=== PATIENT | female | born 1945 | race Caucasian/White ===

== ENCOUNTER 2020-08-13 10:56 | Inpatient (IN) | payer MEDICARE, BC ==
[2020-08-13 11:19] LABS: #Eosinphils 0.1 thou/uL (0.0-0.7); #Lymphocytes 1.3 thou/uL (1.20-3.40); #Monocytes 0.3 thou/uL (0.11-0.59); #Neutrophils 4.5 thou/uL (1.40-6.50); %Basophils 0.8 % (0.0-1.0); %Eosinophils 1.1 % (0.0-10.0); %Lymphocytes 20.7 % (21.0-51.0); %Monocytes 4.9 % (0.0-10.0); %Neutrophils 72.6 % (42.0-75.0); Hemoglobin 13.7 g/dL (12.0-16.0); Mean Corpuscular HGB CONC 33.3 g/dL (32.0-36.0); Mean Corpuscular Hemoglobin 31.5 pg (27.0-31.0); Mean Corpuscular Volume 94.6 fL (78.0-98.0); Mean Platelet Volume 6.6 fL (7.4-10.4); Platelet Count 267 thou/uL (130-400); RBC Distribution Width 13.1 % (11.5-14.5); Red Blood Cell (RBC) Count 4.35 mill/uL (4.20-5.40); White Blood Cell (WBC) Count 6.1 thou/uL (4.8-10.8)
[2020-08-13 11:35] LABS: Acetaminophen Less than 6.0 mcg/mL (10.0-30.0); Alcohol Less than 10 mg/dL (Less than 10); Salicylate Less than 8.0 mg/dL (15.0-30.0)
[2020-08-13 11:50] LABS: ALT (SGPT) 22 U/L (8-55); AST (SGOT) 41 U/L (5-34); Albumin 4.6 g/dL (3.4-4.8); Alkaline Phosphatase 111 U/L (40-110); Anion Gap 15 mmol/L (10-20); BUN (Urea Nitrogen) 13 mg/dL (9.8-20.1); Bilirubin, Total 0.7 mg/dL (0.2-1.2); CK (CPK) 70 U/L (29-168); Calc. Creatinine Clearance 0 mL/min (70-130); Calcium 9.4 mg/dL (7.8-10.44); Carbon Dioxide 26 mmol/L (23-31); Chloride 101 mmol/L (98-107); Globulin 2.8 g/dL (2.4-3.5); Glucose 96 mg/dL (83-110); Potassium 4.3 mmol/L (3.5-5.1); Protein, Total 7.4 g/dL (5.8-8.1); Sodium 138 mmol/L (136-145)
[2020-08-13 12:08] LABS: PTT 34.4 sec (22.9-36.1)
[2020-08-13 13:16] LABS: Bilirubin Negative (Negative); Blood, Urine Negative (Negative); Clarity Clear (Clear); Glucose, Urine (Dipstick) Normal (Negative); Ketone, Urine Negative (Negative); Leukocyte Negative Leu/uL (Negative); Nitrite Negative (Negative); Protein, Urine (Dipstick) Negative (Neg-Trace); Specific Gravity, Urine 1.005 (1.002-1.036); Urobilinogen Normal mg/dL (Less than 2)
[2020-08-13 13:27] LABS: Medtox Reader # READER 1; Opiate Screen Detected (NotDetected)
[2020-08-13 13:28] LABS: Amphetamine Not Detected (NotDetected); Barbiturates Screen Not Detected (NotDetected); Benzodiazepine Screen Not Detected (NotDetected); Cocaine Metabolite Screen Not Detected (NotDetected); Medtox Control Line Valid? VALID (VALID); Methadone Not Detected (NotDetected); Methamphetamine Not Detected (NotDetected); Oxycodone Screen Not Detected (NotDetected); Phencyclidine (PCP) Not Detected (NotDetected); THC/Cannabinoid Screen Not Detected (NotDetected); Tricyclic Screen Not Detected (NotDetected)
--- NOTE | 2020-08-13 13:30 | CT ---
CT OF THE BRAIN WITHOUT CONTRAST: Date: 08/13/2020 INDICATION: Level II stroke in a 74-year-old female with loss of vision in the left eye. COMPARISON: None. FINDINGS: There is mild generalized cerebral and cerebellar atrophy. No acute infarct, hemorrhage, or hydroceph alus is present. Septum pellucidum and third ventricle are midline. Mastoid air cells and paranasal s inuses are clear. Skull is intact. IMPRESSION: No acute intracranial abnormality. Findings called to Dr. Stewart at 11:24 a.m. on 08/13/2020. CODE CR. POS: BH
--- NOTE | 2020-08-13 13:52 | RAD ---
CHEST 1 VIEW: Date: 08/13/2020 INDICATION: Vision loss in left eye. COMPARISON: 10/28/2011. FINDINGS: No confluent air space opacity or pleural effusion is noted. Heart size is normal. No acute osseous a bnormality is evident. IMPRESSION: No acute cardiopulmonary abnormality. POS: BH
[2020-08-13] MEDS ORDERED: Acetaminophen 325 MG TAB PO PRN (14:29)
--- NOTE | 2020-08-13 14:45 | PDOC.HHP ---
Hospitalist HPI Painless vision loss History of Present Illness: Ms. Suh is a 74-year-old female past medical history of hypothyroidism, hypertension, chronic angina who presents to the emergency room sent in by nurse discharge planner Dr. Hidalgo for acute painless vision loss. Patient reports that at approximately 730 yesterday evening she noticed a change in her vision while doing needlepoint. She reports that by covering 1 eye over the other she noted she was unable to see out of her left eye. She reports a visual field defect nasally on the left. She reports she has no pain associated with this, no headache. She called Dr. Hidalgo her nurse discharge planner who saw her first thing in the morning. Per Dr. Hidalgo's records, patient has a central retinal artery occlusion on the left. She has no history of vision loss in the past, but does report a conjunctival hemorrhage. Patient reports her visual field loss is similar but perhaps slightly improved from last night. She denies any numbness weakness or paresthesias. She has no other symptoms at this time. Denies chest pain, shortness of breath, abdominal pain. No dizziness or lightheadedness. She has no history of stroke. She is a non-smoker, is hypertensive which is treated, but has normal cholesterol levels. She has no family history of strokes or cardiac disease. She does report disease of chronic angina secondary to mono. From patient's description wonder if this is perhaps rheumatic disease but unable to confirm from records. She does report she has had occasional palpitations recently as she has been under intense amounts of stress dealing with complex family issues. Emergency room initial vital signs 128/72, 79, 18, 98% on room air. EKG showed normal sinus rhythm with no ischemic changes. Initial troponin 0.01. H&H 13.7/41.1, WBC 6.1, platelets 267. BUN/CR 13/0.74, sodium 138, potassium 4.3. Tox screen negative. CT brain showed no acute abnormalities. Allergies/Adverse Reactions: Allergy/AdvReac Type Severity Reaction Status Date / Time influenza virus vaccine, Allergy Unknown Verified 01/30/13 10:59 specific [Influenza Virus Vacc,Specific] Penicillins Allergy Unknown Verified 01/30/13 10:59 cimetidine [From Tagamet] Allergy Verified 09/13/15 17:22 cimetidine HCl [From Tagamet] Allergy Verified 09/13/15 17:22 Sulfa (Sulfonamide Allergy Verified 09/13/15 17:21 Antibiotics) Home Medications: Medication Instructions Recorded Confirmed Type Isosorbide Mononitrate [Imdur] 60 mg PO DAILY 09/13/15 09/13/15 History Ranolazine [Ranexa] 1,000 mg PO BID 09/13/15 09/13/15 History Thyroid [[place] Thyroid] 90 mg PO DAILY 09/13/15 09/13/15 History Valsartan [Diovan] 160 mg PO DAILY 09/13/15 09/13/15 History Past History: PMHx: Hypothyroidism Hypertension Chronic angina Question of rheumatic disease PSHx: Nasal septum repair Right and left hip replacement Foot surgery Tendon graft and repair Tonsillectomy Left hand surgery FHx: Denies family history of cardiac disease or stroke Social: with at bedside. No smoking alcohol or drug use. Hospitalist HPI ROS Constitutional: denies: fever, chills, sweats, weakness, malaise, other Eyes: reports: vision change. denies: pain, conjunctivae inflammation, eyelid inflammation, redness, other ENT: denies: ear pain, ear discharge, nose pain, nose discharge, nose congestion, mouth pain, mouth swelling, throat pain, throat swelling, other Respiratory: denies: cough, dry, shortness of breath, hemoptysis, SOB with excertion, pleuritic pain, sputum, wheezing, other Cardiovascular: reports: palpitations. denies: chest pain, orthopnea, paroxysmal noc. dyspnea, edema, light headedness, other Gastrointestinal: denies: nausea, vomiting, abdominal pain, diarrhea, constipation, melena, hematochezia, other Genitourinary: denies: dysuria, frequency, incontinence, hematuria, retention, other Musculoskeletal: denies: neck pain, shoulder pain, arm pain, back pain, hand pain, leg pain, foot pain, other Skin: denies: rash, lesions, felix, bruising, other Neurological: denies: weakness, numbness, incoordination, change in speech, confusion, seizures, other Hospitalist Exam General Appearance: NAD, awake alert Eye: PERRL, anicteric sclera Eye - other findings: Pupils dilated, funduscopic exam shows pale retina on the left ENT: normocephalic atraumatic, no oropharyngeal lesions, moist mucosa Neck: supple, symmetric, no JVD, no thyromegaly, no lymphadenopathy, no carotid bruit Heart: RRR, no murmur, no gallops, no rubs, normal peripheral pulses Respiratory: CTAB, no wheezes, no rales, no ronchi, normal chest expansion, no tachypnea, normal percussion Gastrointestinal: soft, non-tender, non-distended, normal bowel sounds, no p alpable masses, no hepatomegaly, no splenomegaly, no bruit Extremities: no cyanosis, no clubbing, no edema Skin: normal turgor, no lesions, no rashes Neurological: cranial nerve grossly intact, normal sensation to touch, no w eakness, no focal deficits, no new deficit Musculoskeletal: normal tone, normal strength, no muscle wasting Psychiatric: normal affect, normal behavior, A&O x 3 Hospitalist Results Result Diagrams: 08/13/20 11:03 08/13/20 11:03 Lab results: Laboratory Last Values WBC 6.1 thou/uL (4.8-10.8) 08/13/20 11:03 RBC 4.35 mill/uL (4.20-5.40) 08/13/20 11:03 Hgb 13.7 g/dL (12.0-16.0) 08/13/20 11:03 Hct 41.1 % (36.0-47.0) 08/13/20 11:03 MCV 94.6 fL (78.0-98.0) 08/13/20 11:03 MCH 31.5 pg (27.0-31.0) H 08/13/20 11:03 MCHC 33.3 g/dL (32.0-36.0) 08/13/20 11:03 RDW 13.1 % (11.5-14.5) 08/13/20 11:03 Plt Count 267 thou/uL (130-400) 08/13/20 11:03 MPV 6.6 fL (7.4-10.4) L 08/13/20 11:03 Neutrophils % 72.6 % (42.0-75.0) 08/13/20 11:03 Lymphocytes % 20.7 % (21.0-51.0) L 08/13/20 11:03 Monocytes % 4.9 % (0.0-10.0) 08/13/20 11:03 Eosinophils % 1.1 % (0.0-10.0) 08/13/20 11:03 Basophils % 0.8 % (0.0-1.0) 08/13/20 11:03 Neutrophils # 4.5 thou/uL (1.40-6.50) 08/13/20 11:03 Lymphocytes # 1.3 thou/uL (1.20-3.40) 08/13/20 11:03 Monocytes # 0.3 thou/uL (0.11-0.59) 08/13/20 11:03 Eosinophils # 0.1 thou/uL (0.0-0.7) 08/13/20 11:03 Basophils # 0.0 thou/uL (0.0-0.2) 08/13/20 11:03 PT 13.0 sec (12.0-14.7) 08/13/20 11:54 INR 1.0 08/13/20 11:54 APTT 34.4 sec (22.9-36.1) 08/13/20 11:54 Sodium 138 mmol/L (136-145) 08/13/20 11:03 Potassium 4.3 mmol/L (3.5-5.1) 08/13/20 11:03 Chloride 101 mmol/L (98-107) 08/13/20 11:03 Carbon Dioxide 26 mmol/L (23-31) 08/13/20 11:03 Anion Gap 15 mmol/L (10-20) 08/13/20 11:03 BUN 13 mg/dL (9.8-20.1) 08/13/20 11:03 Creatinine 0.74 mg/dL (0.6-1.1) 08/13/20 11:03 Estimated GFR (MDRD) 77 08/13/20 11:03 Glucose 96 mg/dL (83-110) 08/13/20 11:03 Calcium 9.4 mg/dL (7.8-10.44) 08/13/20 11:03 Total Bilirubin 0.7 mg/dL (0.2-1.2) 08/13/20 11:03 AST 41 U/L (5-34) H 08/13/20 11:03 ALT 22 U/L (8-55) 08/13/20 11:03 Alkaline Phosphatase 111 U/L (40-110) H 08/13/20 11:03 Creatine Kinase 70 U/L (29-168) 08/13/20 11:03 Troponin I Less than 0.010 ng/mL (< 0.028) 08/13/20 11:03 Serum Total Protein 7.4 g/dL (5.8-8.1) 08/13/20 11:03 Albumin 4.6 g/dL (3.4-4.8) 08/13/20 11:03 Globulin 2.8 g/dL (2.4-3.5) 08/13/20 11:03 Albumin/Globulin Ratio 1.6 g/dL (1.2-2.2) 08/13/20 11:03 Urine Color Light-Yellow (Yellow) 08/13/20 12:30 Urine Clarity Clear (Clear) 08/13/20 12:30 Urine pH 7.0 (5.0-9.0) 08/13/20 12:30 Ur Specific [place] 1.005 (1.002-1.036) 08/13/20 12:30 Urine Protein Negative mg/dL (Neg-Trace) 08/13/20 12:30 Urine Glucose (UA) Normal mg/dL (Negative) 08/13/20 12:30 Urine Ketones Negative mg/dL (Negative) 08/13/20 12:30 Urine Blood Negative (Negative) 08/13/20 12:30 Urine Nitrite Negative (Negative) 08/13/20 12:30 Urine Bilirubin Negative (Negative) 08/13/20 12:30 Urine Urobilinogen Normal mg/dL (Less than 2) 08/13/20 12:30 Ur Leukocyte Esterase Negative Kj/uL (Negative) 08/13/20 12:30 Salicylates Less than 8.0 mg/dL (15.0-30.0) L 08/13/20 11:03 Urine Opiates Screen Detected (NotDetected) H 08/13/20 12:30 Ur Oxycodone Screen Not Detected (NotDetected) 08/13/20 12:30 Urine Methadone Screen Not Detected (NotDetected) 08/13/20 12:30 Ur Propoxyphene Screen Not Detected (NotDetected) 08/13/20 12:30 Acetaminophen Less than 6.0 mcg/mL (10.0-30.0) L 08/13/20 11:03 Ur Barbiturates Screen Not Detected (NotDetected) 08/13/20 12:30 Ur Tricyclics Screen Not Detected (NotDetected) 08/13/20 12:30 Ur Phencyclidine Scrn Not Detected (NotDetected) 08/13/20 12:30 Ur Amphetamines Screen Not Detected (NotDetected) 08/13/20 12:30 U Methamphetamines Scrn Not Detected (NotDetected) 08/13/20 12:30 U Benzodiazepines Scrn Not Detected (NotDetected) 08/13/20 12:30 U Cocaine Metab Screen Not Detected (NotDetected) 08/13/20 12:30 U Cannabinoids Screen Not Detected (NotDetected) 08/13/20 12:30 Drug Screen Comment () 08/13/20 12:30 Plasma Alcohol Less than 10 mg/dL (Less than 10) 08/13/20 11:03 Hospitalist H&P A/P Plan: Central retinal artery occlusion 74-year-old female with acute painless vision loss, sent in by nurse discharge planner Dr. Hidalgo for central retinal artery occlusion. Patient's pupils dilated and occlusion visible on funduscopic exam with glass red spot and pale retina.. Attempted global massage and attempted dislodge clot, however no improvement in vision. Will obtain stat ESR, CRP to rule out giant temporal arteritis, although patient has no headache and no enlarged temporal arteries. CT brain negative. Patient has no history of strokes in the past. Will admit for stroke work-up. Ideally a CTA will be done, however patient has a severe anaphylactic reaction to iodine contrast dye. Will obtain carotid ultrasound to evaluate instead. Plan Aspirin, statin Stat ESR, CRP Every 4 neurochecks MRI brain Echocardiogram, carotid duplex Telemetry monitoring TSH, magnesium, vitamin B12 folate Neurology consult, recommendations appreciated Hypothyroidism History of hypothyroidism. Will check TSH continue patient's home medications once dosages confirmed. Chronic angina Patient has history of chronic angina on Ranexa. She denies any chest pain currently. Does report a history of "heart problems from mononucleosis". Question if patient may have been told she has rheumatic disease. Will check echocardiogram to see if patient has any thrombus and also evaluate valvular function. Hypertension History of hypertension on losartan. Will continue once dosage confirmed. DVT prophylaxisSCDs Full code Case discussed with attending physician, Dr. Alex.
[2020-08-13] MEDS ORDERED: Aspirin 325 mg Enteric Coated Tablet PO SCH (15:00)
[2020-08-13] MEDS ORDERED: Aspirin 325 MG TAB ONE (15:55)
[2020-08-13 15:59] LABS: Troponin I Less than 0.010 ng/mL (< 0.028)
--- NOTE | 2020-08-13 17:50 | ULT ---
BILATERAL CAROTID DUPLEX ULTRASOUND: DATE: 08/13/2020 HISTORY: Central retinal artery occlusion. TECHNIQUE: Plascencia scale ultrasound with color flow and spectral Doppler imaging of the extracranial carotid artery systems performed bilaterally. FINDINGS: No plaque formation or intimal wall thickening seen on either side. The peak systolic velocity in the right ICA measures 97 cm/second with an end-diastolic velocity of 2 0 cm/second and a systolic ratio of 1.19. The peak systolic velocity in the left ICA measures 67 cm/second with an end-diastolic velocity of 23 cm/second and a systolic ratio of 0.64. Flow in both vertebral arteries remains antegrade. IMPRESSION: No evidence of hemodynamically significant stenosis. POS: MIAA
[2020-08-13 18:31] LABS: Troponin I Less than 0.010 ng/mL (< 0.028)
[2020-08-13 21:33] VITALS: BMI 29.9
[2020-08-13] MEDS ORDERED: Gabapentin 300 MG CAP PO SCH (22:00)
[2020-08-13] MEDS ORDERED: HYDROcodone/Acetaminophen 5/325 mg Tablet PO SCH (22:00)
[2020-08-13] MEDS: Atorvastatin Calcium 40 MG TAB PO SCH (22:24)
[2020-08-14 05:28] LABS: #Basophils 0.1 thou/uL (0.0-0.2); #Eosinphils 0.2 thou/uL (0.0-0.7); #Lymphocytes 2.2 thou/uL (1.20-3.40); #Monocytes 0.4 thou/uL (0.11-0.59); #Neutrophils 2.9 thou/uL (1.40-6.50); %Basophils 1.4 % (0.0-1.0); %Eosinophils 2.9 % (0.0-10.0); %Lymphocytes 38.5 % (21.0-51.0); %Monocytes 6.9 % (0.0-10.0); %Neutrophils 50.1 % (42.0-75.0); Mean Corpuscular Hemoglobin 31.4 pg (27.0-31.0); Mean Corpuscular Volume 95.1 fL (78.0-98.0); Mean Platelet Volume 6.4 fL (7.4-10.4); Platelet Count 224 thou/uL (130-400); RBC Distribution Width 12.9 % (11.5-14.5); Red Blood Cell (RBC) Count 3.81 mill/uL (4.20-5.40); White Blood Cell (WBC) Count 5.7 thou/uL (4.8-10.8)
[2020-08-14 05:49] LABS: Anion Gap 12 mmol/L (10-20); BUN (Urea Nitrogen) 13 mg/dL (9.8-20.1); Calc. Creatinine Clearance 91 mL/min (70-130); Calcium 9.3 mg/dL (7.8-10.44); Carbon Dioxide 28 mmol/L (23-31); Cardiac Risk 1.8 (Less than 4.5); Chloride 100 mmol/L (98-107); Cholesterol 148 mg/dl (< 200 Desired); Glucose 94 mg/dL (83-110); HDL Cholesterol 84 mg/dL (>60 Neg Risk); LDL Cholesterol, Calculated 56 mg/dL; Potassium 3.1 mmol/L (3.5-5.1); Sodium 137 mmol/L (136-145); Triglycerides 38 mg/dL (Less than 150)
[2020-08-14] MEDS ORDERED: Potassium Chloride 20 MEQ TAB PO SCH (08:15)
[2020-08-14] MEDS: Aspirin 81 mg Enteric Coated Tablet PO SCH (09:04)
--- NOTE | 2020-08-14 09:31 | MRI ---
MRI BRAIN WITHOUT CONTRAST: Date: 08/14/2020 HISTORY: Vision loss in left eye. FINDINGS: Correlation is made with the previous day's CT scan. No restricted diffusion is seen. No evidence of infarct, hemorrhage, midline shift, or abnormal extra -axial fluid collections noted. The ventricular size is normal and the basilar cisterns are patent. T he visualized paranasal sinuses are well-aerated. There is a tiny amount of fluid in the right mastoi d air cells. IMPRESSION: No evidence of acute intracranial process. POS: OFF
--- NOTE | 2020-08-14 10:19 | PDOC.HOSPP ---
- Subjective Encounter Date: 08/14/20 Encounter Time: 10:16 Subjective: No overnight events. Patient reports mild improvement in her vision, but still with persistent visual field defect of the left eye nasally. Chart and medications reviewed. - Objective Vital Signs & Weight: Vital Signs (12 hours) Temp Pulse Resp BP BP Pulse Ox 08/14/20 09:01 79 15 111/68 95 08/14/20 04:39 95 08/14/20 03:55 97.7 F 69 12 104/55 L 96 08/14/20 00:00 88 Weight Weight 180 lb I&O: 08/13/20 08/14/20 08/15/20 06:59 06:59 06:59 Intake Total 360 Balance 360 Result Diagrams: 08/14/20 05:07 08/14/20 05:07 Additional Labs: Accuchecks 08/13/20 11:05 POC Glucose 84 Hospitalist ROS - Review of Systems Constitutional: denies: fever, chills, sweats, weakness, malaise, other Eyes: reports: vision change. denies: pain, conjunctivae inflammation, eyelid inflammation, redness, other ENT: denies: ear pain, ear discharge, nose pain, nose discharge, nose congestion, mouth pain, mouth swelling, throat pain, throat swelling, other Respiratory: denies: cough, dry, shortness of breath, hemoptysis, SOB with excertion, pleuritic pain, sputum, wheezing, other Cardiovascular: denies: chest pain, palpitations, orthopnea, paroxysmal noc. dyspnea, edema, light headedness, other Gastrointestinal: denies: nausea, vomiting, abdominal pain, diarrhea, constipation, melena, hematochezia, other Genitourinary: denies: dysuria, frequency, incontinence, hematuria, retention, other Musculoskeletal: denies: neck pain, shoulder pain, arm pain, back pain, hand pain, leg pain, foot pain, other Skin: denies: rash, lesions, felix, bruising, other Neurological: denies: weakness, numbness, incoordination, change in speech, confusion, seizures, other - Medication Medications: Active Medications Generic Name Dose Route Start Last Admin Trade Name Freq PRN Reason Stop Dose Admin Aspirin 81 mg 08/14/20 09:00 08/14/20 09:04 Aspirin 81 Mg Enteric Coated Tablet PO 81 mg DAILY JAMES Administration Atorvastatin Calcium 40 mg 08/13/20 21:00 08/13/20 22:24 Atorvastatin Calcium 40 Mg Tab PO 40 mg HS JAMES Administration Hospitalist Exam Vitals: Vital Signs (12 hours) Temp Pulse Resp BP BP Pulse Ox 08/14/20 09:01 79 15 111/68 95 08/14/20 04:39 95 08/14/20 03:55 97.7 F 69 12 104/55 L 96 08/14/20 00:00 88 Weight Weight 180 lb General Appearance: NAD, awake alert Eye: PERRL, anicteric sclera Eye - other findings: Visual field defect, funduscopic exam with pale retina ENT: normocephalic atraumatic, no oropharyngeal lesions, moist mucosa Neck: supple, symmetric, no JVD, no thyromegaly, no lymphadenopathy, no carotid bruit Heart: RRR, no murmur, no gallops, no rubs, normal peripheral pulses Respiratory: CTAB, no wheezes, no rales, no ronchi, normal chest expansion, no tachypnea, normal percussion Gastrointestinal: soft, non-tender, non-distended, normal bowel sounds, no palpable masses, no hepatomegaly, no splenomegaly, no bruit Extremities: no cyanosis, no clubbing, no edema Skin: normal turgor, no lesions, no rashes Neurological: cranial nerve grossly intact, normal sensation to touch, no weakness, no focal deficits, no new deficit Musculoskeletal: normal tone, normal strength, no muscle wasting Psychiatric: normal affect, normal behavior, A&O x 3 Hosp A/P - Plan Central retinal artery occlusion 74-year-old female with acute painless vision loss, sent in by community facilitator Dr. Hidalgo for central retinal artery occlusion. Patient's pupils dilated and occlusion visible on funduscopic exam with glass red spot and pale retina.. Attempted global massage and attempted dislodge clot, however no improvement in vision. Will obtain stat ESR, CRP to rule out giant temporal arteritis, although patient has no headache and no enlarged temporal arteries. CT brain negative. Patient has no history of strokes in the past. Will admit for stroke work-up. Ideally a CTA will be done, however patient has a severe anaphylactic reaction to iodine contrast dye. Carotid US with no significant stenosis. ESR/CRP negative. MRI pending, echo pending. Plan Aspirin, statin ESR/CRP negative -Carotid US negative MRI brain pending Echocardiogram pending Telemetry monitoring TSH, magnesium, vitamin B12 folate Neurology consult, recommendations appreciated Hypokalemia K 3.1 this am, will replete and continue to monitor. Hypothyroidism History of hypothyroidism. Will check TSH continue patient's home medications once dosages confirmed. Chronic angina Patient has history of chronic angina on Ranexa. She denies any chest pain currently. Does report a history of "heart problems from mononucleosis". Question if patient may have been told she has rheumatic disease. Will check echocardiogram to see if patient has any thrombus and also evaluate valvular function. Hypertension History of hypertension on losartan. Will continue once dosage confirmed. DVT prophylaxisSCDs Full code Case discussed with attending physician, Dr. Clancy.
--- NOTE | 2020-08-14 12:53 | CON ---
NEUROLOGY CONSULTATION DATE OF CONSULTATION: 08/14/2020 REASON FOR CONSULTATION: Painless vision loss. HISTORY OF PRESENT ILLNESS: Ms. Suh is a 74-year-old female with medical history significant for hypothyroidism, hypertension, chronic angina, presented to the emergency room after seen by professor of chemistry, Dr. Hidalgo, for acute painless loss of vision. Per the patient, approximately around 0730 hours yesterday evening, she noted change in vision when she covered one eye. She was unable to see out of the left eye. She reported the visual field defect to her professor of chemistry, Dr. Hidalgo, who advised her to come to the emergency room for further evaluation. She does have history of central retinal artery occlusion on the left per records. This morning, visual field loss is much better. The patient denies focal numbness, focal paresthesias, nausea, vomiting, headache, chest pain, abdominal pain, recent illness, or recent exposure to COVID. She denies any double vision or problems with speech or swallowing. In the emergency room, vital signs were blood pressure 128/72, pulse 79, respiratory rate 18. CT of the brain did not reveal any acute intracranial pathology. She was admitted for stroke workup. Allergies/Adverse Reactions: Allergy/AdvReac Type Severity Reaction Status Date / Time influenza virus vaccine, Allergy Unknown Verified 01/30/13 10:59 specific [Influenza Virus Vacc,Specific] Penicillins Allergy Unknown Verified 01/30/13 10:59 cimetidine [From Tagamet] Allergy Verified 09/13/15 17:22 cimetidine HCl [From Tagamet] Allergy Verified 09/13/15 17:22 Sulfa (Sulfonamide Allergy Verified 09/13/15 17:21 Antibiotics) Home Medications: Medication Instructions Recorded Confirmed Type Isosorbide Mononitrate [Imdur] 60 mg PO DAILY 09/13/15 09/13/15 History Ranolazine [Ranexa] 1,000 mg PO BID 09/13/15 09/13/15 History Thyroid [[place] Thyroid] 90 mg PO DAILY 09/13/15 09/13/15 History Valsartan [Diovan] 160 mg PO DAILY 09/13/15 09/13/15 History REVIEW OF SYSTEMS: All systems were reviewed and were negative except for the pertinent positives and negatives mentioned in the HPI. PAST MEDICAL HISTORY: 1. Hypothyroidism. 2. Hypertension. 3. Chronic angina. 4. Rheumatoid disease. PAST SURGICAL HISTORY: 1. Nasal septum repair. 2. Right and left hip replacement for surgery. 3. Tendon graft repair. 4. Tonsillectomy. 5. Left hand surgery. FAMILY HISTORY: No family history of stroke or coronary artery disease. SOCIAL HISTORY: , lives with her . Denies smoking, alcohol, or illegal drug use. Vital Signs & Weight: Vital Signs (12 hours) Temp Pulse Resp BP BP Pulse Ox 08/14/20 09:01 79 15 111/68 95 08/14/20 04:39 95 08/14/20 03:55 97.7 F 69 12 104/55 L 96 08/14/20 00:00 88 Weight Weight 180 lb I&O: 08/13/20 08/14/20 08/15/20 06:59 06:59 06:59 Intake Total 360 Balance 360 Additional Labs: Accuchecks 08/13/20 11:05 POC Glucose 84 Active Medications Generic Name Dose Route Start Last Admin Trade Name Freq PRN Reason Stop Dose Admin Aspirin 81 mg 08/14/20 09:00 08/14/20 09:04 Aspirin 81 Mg Enteric Coated Tablet PO 81 mg DAILY JAMES Administration Atorvastatin Calcium 40 mg 08/13/20 21:00 08/13/20 22:24 Atorvastatin Calcium 40 Mg Tab PO 40 mg HS JAMES Administration Vitals: Vital Signs (12 hours) Temp Pulse Resp BP BP Pulse Ox 08/14/20 09:01 79 15 111/68 95 08/14/20 04:39 95 08/14/20 03:55 97.7 F 69 12 104/55 L 96 08/14/20 00:00 88 Weight Weight 180 lb PHYSICAL EXAMINATION: General Appearance: NAD, awake alert Eye: PERRL, anicteric sclera Eye - other findings: Visual field defect, funduscopic exam with pale retina ENT: normocephalic atraumatic, no oropharyngeal lesions, moist mucosa Neck: supple, symmetric, no JVD, no thyromegaly, no lymphadenopathy, no carotid bruit Heart: RRR, no murmur, no gallops, no rubs, normal peripheral pulses Respiratory: CTAB, no wheezes, no rales, no ronchi, normal chest expansion, no tachypnea, normal percussion Gastrointestinal: soft, non-tender, non-distended, normal bowel sounds, no palpable masses, no hepatomegaly, no splenomegaly, no bruit Extremities: no cyanosis, no clubbing, no edema Skin: normal turgor, no lesions, no rashes Neurological: Mental status; the patient is alert and oriented to person, place, and time. Recent and remote memory intact. Fund of knowledge is appropriate. Speech is clear. Cranial nerves 2 through 12 intact. Motor, muscle tone and bulk are normal. Strength 5/5 bilaterally. Sensory intact. Cerebellar, finger-nose testing intact. Gait deferred due to the patient's safety reason. DATA REVIEWED: I reviewed the labs which are essentially unremarkable. Head CT did not reveal any acute intracranial pathology. ASSESSMENT AND PLAN: Ms. Kati Suh is a 74-year-old female with history significant for central retinal artery occlusion on the left, hypothyroidism, chronic angina, hypertension, presented with acute painless vision loss, sent in by Ophthalmology. The patient vision somewhat improved. Labs sent for giant cell arteritis. However, the patient has no symptoms of giant cell arteritis at this time with no headache or other symptoms. Head CT is negative. Carotid Doppler did not reveal hemodynamically significant stenosis. MRI of the brain did not show any acute intracranial pathology. Start aspirin and high-intensity statin for secondary stroke prevention. 2 D echo pending. Neuro checks every 4 hours. Telemetry to rule out arrhythmias. PT/OT/speech. Continue home medications. Strict control of blood pressure and blood glucose. Continue medical management per primary team. Thank you for the consult. Job ID: [id number]
[2020-08-14 14:21] LABS: Anion Gap 11 mmol/L (10-20); BUN (Urea Nitrogen) 13 mg/dL (9.8-20.1); Calc. Creatinine Clearance 90 mL/min (70-130); Calcium 9.3 mg/dL (7.8-10.44); Carbon Dioxide 32 mmol/L (23-31); Chloride 98 mmol/L (98-107); Glucose 128 mg/dL (83-110); Potassium 4.1 mmol/L (3.5-5.1); Sodium 137 mmol/L (136-145)
[2020-08-14] MEDS ORDERED: Nitroglycerin 0.4 MG TAB (25 Tab Bottle) SL PRN (18:58)
[2020-08-14] MEDS ORDERED: Valsartan 80 MG TAB PO SCH (21:00)
[2020-08-14] MEDS ORDERED: Hydrochlorothiazide 25 MG TAB PO SCH (21:00)
[2020-08-14] MEDS: Atorvastatin Calcium 40 MG TAB PO SCH (21:30)
[2020-08-14] MEDS: Gabapentin 300 MG CAP PO SCH (21:30)
[2020-08-15 05:00] LABS: #Eosinphils 0.2 thou/uL (0.0-0.7); #Lymphocytes 1.8 thou/uL (1.20-3.40); #Monocytes 0.4 thou/uL (0.11-0.59); #Neutrophils 3.1 thou/uL (1.40-6.50); %Basophils 0.8 % (0.0-1.0); %Eosinophils 2.9 % (0.0-10.0); %Lymphocytes 33.3 % (21.0-51.0); %Monocytes 6.9 % (0.0-10.0); %Neutrophils 56.2 % (42.0-75.0); Hemoglobin 12.6 g/dL (12.0-16.0); Mean Corpuscular HGB CONC 33.5 g/dL (32.0-36.0); Mean Corpuscular Hemoglobin 31.7 pg (27.0-31.0); Mean Corpuscular Volume 94.8 fL (78.0-98.0); Mean Platelet Volume 6.7 fL (7.4-10.4); Platelet Count 221 thou/uL (130-400); RBC Distribution Width 12.9 % (11.5-14.5); Red Blood Cell (RBC) Count 3.96 mill/uL (4.20-5.40); White Blood Cell (WBC) Count 5.5 thou/uL (4.8-10.8)
[2020-08-15 05:21] LABS: Anion Gap 13 mmol/L (10-20); BUN (Urea Nitrogen) 12 mg/dL (9.8-20.1); Calc. Creatinine Clearance 98 mL/min (70-130); Calcium 8.8 mg/dL (7.8-10.44); Carbon Dioxide 28 mmol/L (23-31); Chloride 100 mmol/L (98-107); Glucose 89 mg/dL (83-110); Potassium 3.7 mmol/L (3.5-5.1); Sodium 137 mmol/L (136-145)
[2020-08-15] MEDS: Gabapentin 300 MG CAP PO SCH (07:48)
[2020-08-15] MEDS: Aspirin 81 mg Enteric Coated Tablet PO SCH (07:49)
[2020-08-15 09:23] VITALS: BP 136/77; TEMP 97.8
--- NOTE | 2020-08-15 17:38 | PDOC.DS.DS ---
Provider Date of Admission: 08/14/20 18:57 Date of Discharge: 08/15/20 Admitting Provider: Analy Alex MD Consultations: Neurology Primary Care Physician: Shayne Moser MD Course Hospital Course: HISTORY OF PRESENT ILLNESS ON ADMISSION Ms. Suh is a 74-year-old female past medical history of hypothyroidism, hypertension, chronic angina who presents to the emergency room sent in by chief radiation therapist Dr. Hidalgo for acute painless vision loss. Patient reports that at approximately 730 yesterday evening she noticed a change in her vision while doing needlepoint. She reports that by covering 1 eye over the other she noted she was unable to see out of her left eye. She reports a visual field defect nasally on the left. She reports she has no pain associated with this, no headache. She called Dr. Hidalgo her chief radiation therapist who saw her first thing in the morning. Per Dr. Hidalgo's records, patient has a central retinal artery occlusion on the left. She has no history of vision loss in the past, but does report a conjunctival hemorrhage. Patient reports her visual field loss is similar but perhaps slightly improved from last night. She denies any numbness weakness or paresthesias. She has no other symptoms at this time. Denies chest pain, shortness of breath, abdominal pain. No dizziness or lightheadedness. She has no history of stroke. She is a non-smoker, is hypertensive which is treated, but has normal cholesterol levels. She has no family history of strokes or cardiac disease. She does report disease of chronic angina secondary to mono. From patient's description wonder if this is perhaps rheumatic disease but unable to confirm from records. She does report she has had occasional palpitations recently as she has been under intense amounts of stress dealing with complex family issues. Emergency room initial vital signs 128/72, 79, 18, 98% on room air. EKG showed normal sinus rhythm with no ischemic changes. Initial troponin 0.01. H&H 13.7/41.1, WBC 6.1, platelets 267. BUN/CR 13/0.74, sodium 138, potassium 4.3. Tox screen negative. CT brain showed no acute abnormalities. BRIEF HOSPITAL COURSE Ms. Suh is a 74-year-old female with past medical history of hypothyroidism, hypertension, chronic angina who initially presented to the emergency room sent in from her chief radiation therapist office (Dr. Hidalgo) for acute painless vision loss. Patient was found per Dr. Hidalgo to have a central retinal artery occlusion on the left eye. She had vision loss the evening prior to admission and reported a painless visual field defect nasally on the left. She had no pain or headaches. Her CRP and ESR were negative. On funduscopic exam a pale retina was visibly seen as well as a glass red spot. Patient had no conjunctival injection, negative fluorescein stain. Manual massage of the globe was attempted to di slodge the clot but was unsuccessful. Patient had no history of stroke or cardiovascular symptoms aside from her chronic angina. She was admitted for stroke rule out. On presentation to the emergency room her labs showed no major abnormalities and her CT brain was negative as well as her talk screen. MRI brain the next day was negative for any acute findings. Echocardiogram showed no evidence of thrombus and a normal ejection fraction and no valvular pathologies. A carotid Doppler studies of the bilateral neck arteries were negative for any significant stenosis. Patient was evaluated by Dr. Chandra of neurology who agreed with work-up. Patient had no neurologic symptoms during her stay aside from the vision loss, which was slightly improved the following day. Patient was monitored on telemetry and had no arrhythmias noted. Her cholesterol and hemoglobin levels were checked and were within normal limits. She was discharged on a daily aspirin, and atorvastatin 40 mg. These pr escriptions were sent into her pharmacy. She was advised to follow-up with her chief radiation therapist Dr. Hidalgo in 1 week as well as her primary care provider for further evaluation and modification of any stroke or vascular risk factors. Patient demonstrated verbal understanding of this plan and knows to represent to the emergency room should she develop any new neurologic symptoms or any further changes to her vision. Case was discussed with attending physician Dr. Clancy who is in agreement with assessment and plan above for discharge home with return precautions. Resuscitation Status: 08/13/20 14:29 Resuscitation Status Routine Co-Sign Provider: Resuscitation Status: FULL: Full Resuscitation Lab Results: 08/15/20 03:52 08/15/20 03:53 Abnormal Lab Results - Last 48 hrs 08/14/20 05:07: Potassium 3.1 L 08/14/20 05:07: RBC 3.81 L, MCH 31.4 H, MPV 6.4 L, Basophils % 1.4 H 08/14/20 13:53: Carbon Dioxide 32 H 08/15/20 03:52: RBC 3.96 L, MCH 31.7 H, MPV 6.7 L Vitals: Vital Signs (12 hours) Temp Pulse Resp BP Pulse Ox 08/15/20 07:45 97.8 F 71 16 136/77 96 Weight Weight 180 lb Physical Exam: The patient was seen and examined on the day of discharge. NAD, AOx3 Normocephalic, atraumatic Visual field defect to left eye nasally. Pale retina on funduscopic exam. Neck supple, no JVD, no lymphadenopathy RRR, no murmurs, rubs, or gallops Lungs CTAB, no wheezes, no dyspnea or tachypnea Abdomen soft, non-tender with normoactive bowel sounds Skin warm with no rashes, normal turgor Extremities with no edema and intact peripheral pulses Normal tone and muscle strength No focal deficits, no weakness Problem Plan of Treatment: Central retinal artery occlusion Start aspirin 81 mg daily, atorvastatin 40 mg daily These prescriptions were sent into patient's pharmacy. Patient will need to follow-up with Dr. Hidalgo in 1 week as well as her primary care provider also in 2 weeks. Case discussed with attending physician Dr. Clancy who is in agreement with assessment and plan for discharge home with return precautions. Plan Prescriptions: Aspirin [Aspirin EC] 81 mg PO DAILY 30 Days #30 tablet. Atorvastatin Calcium 40 mg PO DAILY 30 Days #30 tablet Home Medications: Medication Instructions Recorded Confirmed Type Ranolazine [Ranexa] 1,000 mg PO BID 09/13/15 08/13/20 History Thyroid [[place] Thyroid] 90 mg PO DAILY 09/13/15 08/13/20 History Diclofenac Sodium [Diclofenac 2 gm TOP QID PRN 08/13/20 08/13/20 History Sodium 1% Gel] Fluticasone Propionate [Flonase 2 spray EA NARE BID 08/13/20 08/13/20 History Nasal [place]] Furosemide [Lasix] 20 mg PO BID 08/13/20 08/13/20 History Gabapentin 300 mg PO TID 08/13/20 08/13/20 History HYDROcodone/Acetaminophen 0.5 tab PO BID 08/13/20 08/13/20 History [Hydrocodone-Acetamin 7.5-300] HYDROcodone/Acetaminophen 1.5 tab PO HS 08/13/20 08/13/20 History [Hydrocodone-Acetamin 7.5-300] Isosorbide Mononitrate [Isosorbide 1 tab PO DAILY 08/13/20 08/13/20 History Mononitrate ER] Nitroglycerin 0.4 mg SL PRN PRN 08/13/20 08/13/20 History Valsartan/Hydrochlorothiazide 0.5 tab PO HS 08/13/20 08/13/20 History [Diovan Hct 160-25 mg Tablet] guaiFENesin ER [Mucinex] 600 mg PO DAILY 08/13/20 08/13/20 History Aspirin [Aspirin EC] 81 mg PO DAILY 30 Days #30 08/15/20 Rx tablet. Atorvastatin Calcium 40 mg PO DAILY 30 Days #30 tablet 08/15/20 Rx Allergies: acetaminophen [From Tylenol] Allergy (Unknown, Verified 08/13/20 21:29) Rash, hives, blurred vision Iodine and Iodide Containing Produc Allergy (Unknown, Verified 08/13/20 21:29) Rash, hives, blurred vision Penicillins Allergy (Unknown, Verified 08/13/20 21:27) Rash, hives, blurred vision prednisone Allergy (Verified 08/13/20 21:29) "Heart problems" Sulfa (Sulfonamide Antibiotics) Allergy (Verified 08/13/20 21:29) Rash, hives, blurred vision Referrals: Shayne Moser MD [Primary Care Provider] - 3 Days (Please call to schedule an appointment.) Shayne Puentes MD [Active] - 7 Days (Please call the office to schedule an appointment) Disposition: HOME Quality CORE MEASURES:: Stroke/TIA, N/A Did you prescribe antithrombotic therapy?: Yes Did you prescribe anticoagulant for A Fib/Flutter?: No Specify reason for no DC anticoagulant: Treatment not indicated Did you prescribe a statin medication?: Yes
[2020-08-18 12:34] LABS: ANA Symphony (Qualitative) Negative (Negative); ANA Symphony (Quantitative) 0.1 Ratio (< 0.7 Negative); dsDNA IgG Antibody 0.6 IU/mL (<10 Negative)
== END 2020-08-15 10:02 | disposition home or self-care (01) | DRG 123 ==
LOC: ERS 10:56 → ERHOLD 13:55 → 2NO 19:17 → OBSVTOIN 08-14 18:57
PROVIDERS: ADMIT Internal Medicine; ATTEND Internal Medicine
DX: H34.12 Central retinal artery occlusion, left eye (principal); E03.9 Hypothyroidism, unspecified; Z96.651 Presence of right artificial knee joint; Z96.641 Presence of right artificial hip joint; I10 Essential (primary) hypertension; B27.90 Infectious mononucleosis, unspecified without complication; I20.8 Other forms of angina pectoris; E87.6 Hypokalemia; Z88.0 Allergy status to penicillin; Z88.2 Allergy status to sulfonamides; Z88.7 Allergy status to serum and vaccine; Z90.89 Acquired absence of other organs; Z88.8 Allergy status to other drugs, medicaments and biological substances; Z91.041 Radiographic dye allergy status
CPT/HCPCS: 36415; 36416; 70450; 70551; 71045; 80048; 80053; 80061; 80306; 80307; 81003; 82550; 84484; 85025; 85610; 85652; 85730; 86038; 86140; 86225; 93005; 93306; 93880; 94760; G0378

== ENCOUNTER 2022-11-18 08:40 | Outpatient (CLI) | payer MEDICARE, BC | END 2022-11-18 08:41 | disposition home or self-care (01) | LOC: MRI 08:40 | PROVIDERS: ATTEND Anesthesiology Pain Medicine | DX: M48.062 Spinal stenosis, lumbar region with neurogenic claudication (principal); M48.07 Spinal stenosis, lumbosacral region | CPT/HCPCS: 72148 ==